=== PATIENT | male | born 1990 | race Caucasian/White ===

== ENCOUNTER 2019-06-24 08:29 | Emergency (ER) | payer OTHER ==
[~2019-06-24] VITALS: Ht 177.8 cm; Wt 71.6 kg
[2019-06-24] MEDS ORDERED: KETOROLAC 60 MG/2 ML ONE (09:16)
--- NOTE | 2019-06-24 09:24 | NUR ---
PT WITH C/O OF MIGRAINE LIKE VARGAS. STARTED THIS AM, PT DENIES HX OF MIGRAINES. NO OTHER MEDICAL HX REPORTED. PT TO NIBP, CONT PULSE OX. PT MEDICATED PER MAR
[2019-06-24] MEDS ORDERED: KETOROLAC 30 MG/1 ML IM ONE (09:30)
--- NOTE | 2019-06-24 09:42 | NUR ---
PT BACK FROM CT, NAD NOTED
[2019-06-24 10:19] VITALS: BP 116/79
--- NOTE | 2019-06-24 10:20 | NUR ---
PT RESTING ON GURNEY AT THIS TIME, NAD NOTED, PT PLACED FOR RECHECK
--- NOTE | 2019-06-24 10:55 | NUR ---
Patient/Caregiver given discharge instructions and they have confirmed that they understand the instructions. Patient ambulatory with steady gait.
== END 2019-06-24 10:56 | disposition home or self-care (01) ==
LOC: ED 10:50
DX: J01.01 Acute recurrent maxillary sinusitis (principal)
CPT/HCPCS: 76380; 96372; 99284; J1885

== ENCOUNTER 2021-04-05 11:06 | Emergency (ER) | payer OTHER, SELFPAY ==
[~2021-04-05] VITALS: Ht 177.8 cm; Wt 72.3 kg
--- NOTE | 2021-04-05 11:19 | NUR ---
PT AMBULATORY TO ROOM FROM TRIAGE, CHANGED INTO GOWN, MONITORS IN PLACE. PT C/O STOMACH PAINS SINCE THIS MORNING WITH N/V. PT STATES SOME OF HIS BILE WAS RED BUT ALSO STATES HE HAD A BLOODY NOSE THIS MORNING. HX: HIATAL HERNIA.
--- NOTE | 2021-04-05 11:20 | NUR ---
ERP AT BS FOR EVAL
[2021-04-05] MEDS ORDERED: MAALOX/HYOSCYAMINE/LIDOCAINE 45 ML BTL PO ONE (11:30)
[2021-04-05] MEDS ORDERED: MAALOX/HYOSCYAMINE/LIDOCAINE 45 ML BTL ONE (11:36)
--- NOTE | 2021-04-05 11:39 | NUR ---
PT MEDICATED PER EMAR. NADN/VSS. PT TO IMAGING.
[2021-04-05 11:42] LABS: BASOPHILS % (AUTO) 1 % (0-1); EOSINOPHILS % (AUTO) 2 % (1-7); LYMPHOCYTES % (AUTO) 39 % (22-44); MEAN CORPUSCULAR HEMOGLOBIN 33.5 pg (27.5-34.5); MEAN CORPUSCULAR HGB CONC 35.1 g/dL (33.2-36.2); MEAN PLATELET VOLUME 6.9 fL (7.4-10.4); MONOCYTES % (AUTO) 11 % (2-9); NEUTROPHILS % (AUTO) 47 % (42-75); PLATELET COUNT 343 x10^3/uL (130-400); RED CELL DISTRIBUTION WIDTH 13.2 % (9.4-14.8)
--- NOTE | 2021-04-05 11:47 | NUR ---
PT BACK TO ROOM FROM IMAGING, CONNECTED TO MONITORS, CALL LIGHT WITHIN REACH, BED IN LOWEST POSITION, BED RAILS UP X2. FAMILY AT BS
[2021-04-05 11:48] LABS: ALANINE AMINOTRANSFERASE 89 U/L (12-78); ANION GAP 7 mmol/L (5-15); CALCIUM 9.4 mg/dL (8.5-10.1); CHLORIDE 109 mmol/L (98-107)
[2021-04-05 11:51] LABS: ALKALINE PHOSPHATASE 89 U/L (45-117); BILIRUBIN,TOTAL 0.6 mg/dL (0.2-1.0); CREATININE 1.04 mg/dL (0.7-1.3); TOTAL PROTEIN 7.7 g/dL (6.4-8.2)
[2021-04-05 12:47] VITALS: BP 120/77
--- NOTE | 2021-04-05 12:56 | NUR ---
ERP AT FOR RECHECK
--- NOTE | 2021-04-05 13:57 | NUR ---
Patient given discharge instructions and they have confirmed that they understand the instructions. Patient ambulatory with steady gait.
== END 2021-04-05 13:59 | disposition home or self-care (01) ==
LOC: ED 12:33
DX: K21.00 Gastro-esophageal reflux disease with esophagitis, without bleeding (principal); F17.200 Nicotine dependence, unspecified, uncomplicated
CPT/HCPCS: 36415; 74022; 80053; 83690; 85025; 99284